=== PATIENT | male | born 1975 | race Caucasian/White ===

== ENCOUNTER 2023-07-09 22:36 | Inpatient (IN) | payer OTHER ==
[2023-07-09 23:27] LABS: #Basophils 0.1 thou/uL (0.0-0.2); #Eosinphils 0.5 thou/uL (0.0-0.7); #Monocytes 0.5 thou/uL (0.11-0.59); #Neutrophils 6.1 thou/uL (1.40-6.50); %Basophils 0.8 % (0.0-1.0); %Eosinophils 5.7 % (0.0-10.0); %Lymphocytes 21.7 % (21.0-51.0); %Monocytes 5.1 % (0.0-10.0); %Neutrophils 66.3 % (42.0-75.0); Mean Corpuscular HGB CONC 31.7 g/dL (32.0-36.0); Mean Corpuscular Hemoglobin 26.6 pg (27.0-31.0); Mean Corpuscular Volume 83.8 fl (78.0-98.0); Mean Platelet Volume 10.8 fL (7.4-10.4); Platelet Count 375 10x3/uL (130-400); RBC Distribution Width 12.9 % (11.5-14.5); Red Blood Cell (RBC) Count 4.89 mill/uL (4.70-6.10); White Blood Cell (WBC) Count 9.3 10x3/uL (4.8-10.8)
[2023-07-09 23:51] LABS: ALT (SGPT) 11 U/L (8-55); AST (SGOT) 12 U/L (5-34); Albumin 4.3 g/dL (3.5-5.0); Alkaline Phosphatase 83 U/L (40-110); Anion Gap 18 mmol/L (10-20); BUN (Urea Nitrogen) 14 mg/dL (8.9-20.6); Bilirubin, Total 0.2 mg/dL (0.2-1.2); Calc. Creatinine Clearance 0 mL/min (70-130); Calcium 9.5 mg/dL (7.8-10.44); Carbon Dioxide 21 mmol/L (22-29); Chloride 103 mmol/L (98-107); Estimated GFR 84; Globulin 3.2 g/dL (2.4-3.5); Glucose 122 mg/dL (70-105); Potassium 4.2 mmol/L (3.5-5.1); Protein, Total 7.5 g/dL (6.0-8.3); Sodium 138 mmol/L (136-145)
[2023-07-10] MEDS ORDERED: methylPREDNISolone Sod Succ/PF 125 MG/2 ML VIAL ONE (01:11)
[2023-07-10 02:34] LABS: Lactic Acid 1.6 mmol/L (0.5-2.2)
[2023-07-10 02:42] LABS: Troponin I 0.021 ng/mL (< 0.028)
[2023-07-10] MEDS ORDERED: LevoFLOXacin 750 mg/D5W 150 ml Premix Bag ONE (06:05)
[2023-07-10 06:20] VITALS: BMI 27.4
[2023-07-10] MEDS ORDERED: Ondansetron PF 4 MG/2 ML Vial IVP PRN (07:41)
[2023-07-10] MEDS ORDERED: Ondansetron ODT 4 MG TAB PO PRN (07:41)
[2023-07-10] MEDS: Sodium Chloride 0.9% 1,000 ML IV SCH ×2 (08:16→15:33)
[2023-07-10] MEDS ORDERED: Nicotine 14 MG PATCH TD SCH (09:45)
[2023-07-11 06:27] LABS: #Basophils 0.1 thou/uL (0.0-0.2); #Eosinphils 0.3 thou/uL (0.0-0.7); #Monocytes 0.9 thou/uL (0.11-0.59); #Neutrophils 10.4 thou/uL (1.40-6.50); %Basophils 0.3 % (0.0-1.0); %Eosinophils 2.3 % (0.0-10.0); %Lymphocytes 19.4 % (21.0-51.0); %Monocytes 5.9 % (0.0-10.0); %Neutrophils 71.7 % (42.0-75.0); Hematocrit 37.1 % (42.0-52.0); Hemoglobin 11.6 g/dL (14.0-18.0); Mean Corpuscular HGB CONC 31.3 g/dL (32.0-36.0); Mean Corpuscular Hemoglobin 26.2 pg (27.0-31.0); Mean Corpuscular Volume 83.7 fl (78.0-98.0); Mean Platelet Volume 11.1 fL (7.4-10.4); Platelet Count 389 10x3/uL (130-400); RBC Distribution Width 12.9 % (11.5-14.5); Red Blood Cell (RBC) Count 4.43 mill/uL (4.70-6.10); White Blood Cell (WBC) Count 14.5 10x3/uL (4.8-10.8)
[2023-07-11 06:55] LABS: Anion Gap 13 mmol/L (10-20); BUN (Urea Nitrogen) 13 mg/dL (8.9-20.6); Calc. Creatinine Clearance 139 mL/min (70-130); Calcium 8.9 mg/dL (7.8-10.44); Carbon Dioxide 24 mmol/L (22-29); Chloride 107 mmol/L (98-107); Estimated GFR 106; Glucose 101 mg/dL (70-105); Potassium 4.1 mmol/L (3.5-5.1); Sodium 140 mmol/L (136-145)
[2023-07-11] MEDS: Nicotine 14 MG PATCH TD SCH (08:03)
[2023-07-11] MEDS: LevoFLOXacin 750 mg/D5W 750 MG in Premix 1 BAG IVPB SCH (08:03)
[2023-07-11] MEDS: guaiFENesin ER 600 MG TAB PO SCH (19:59)
[2023-07-11] MEDS: Acetaminophen 325 MG TAB PO PRN (21:44)
[2023-07-11] MEDS ORDERED: traMADol HCl 50 MG TAB PO SCH (23:00)
[2023-07-11] MEDS ORDERED: Lidocaine 4% Patch TD SCH (23:00)
[2023-07-12 07:35] LABS: #Basophils 0.1 thou/uL (0.0-0.2); #Eosinphils 0.5 thou/uL (0.0-0.7); #Monocytes 0.8 thou/uL (0.11-0.59); #Neutrophils 6.6 thou/uL (1.40-6.50); %Basophils 0.6 % (0.0-1.0); %Lymphocytes 23.8 % (21.0-51.0); %Monocytes 7.5 % (0.0-10.0); %Neutrophils 62.4 % (42.0-75.0); Hemoglobin 11.7 g/dL (14.0-18.0); Mean Corpuscular HGB CONC 31.6 g/dL (32.0-36.0); Mean Corpuscular Hemoglobin 26.3 pg (27.0-31.0); Mean Corpuscular Volume 83.1 fl (78.0-98.0); Mean Platelet Volume 11.1 fL (7.4-10.4); Platelet Count 334 10x3/uL (130-400); RBC Distribution Width 13.1 % (11.5-14.5); Red Blood Cell (RBC) Count 4.45 mill/uL (4.70-6.10); White Blood Cell (WBC) Count 10.6 10x3/uL (4.8-10.8)
[2023-07-12 08:17] LABS: Anion Gap 14 mmol/L (10-20); BUN (Urea Nitrogen) 17 mg/dL (8.9-20.6); Calc. Creatinine Clearance 144 mL/min (70-130); Calcium 9.2 mg/dL (7.8-10.44); Carbon Dioxide 22 mmol/L (22-29); Chloride 106 mmol/L (98-107); Estimated GFR 107; Glucose 99 mg/dL (70-105); Potassium 4.2 mmol/L (3.5-5.1); Sodium 138 mmol/L (136-145)
[2023-07-12] MEDS: guaiFENesin ER 600 MG TAB PO SCH ×2 (08:17→19:51)
[2023-07-12] MEDS: LevoFLOXacin 750 mg/D5W 750 MG in Premix 1 BAG IVPB SCH (08:17)
[2023-07-12] MEDS: Nicotine 14 MG PATCH TD SCH (08:58)
[2023-07-12] MEDS: Transdermal Patch Removal TOP SCH (08:58)
[2023-07-12] MEDS ORDERED: Lidocaine 4% Patch TD SCH (09:00)
[2023-07-12] MEDS: traMADol HCl 50 MG TAB PO PRN (19:51)
[2023-07-12] MEDS: Lidocaine 4% Patch TD SCH (19:51)
[2023-07-13 04:35] LABS: #Basophils 0.1 thou/uL (0.0-0.2); #Eosinphils 0.5 thou/uL (0.0-0.7); #Monocytes 0.8 thou/uL (0.11-0.59); #Neutrophils 6.6 thou/uL (1.40-6.50); %Basophils 0.8 % (0.0-1.0); %Eosinophils 4.9 % (0.0-10.0); %Lymphocytes 22.9 % (21.0-51.0); %Monocytes 7.9 % (0.0-10.0); %Neutrophils 62.8 % (42.0-75.0); Hematocrit 38.7 % (42.0-52.0); Hemoglobin 12.5 g/dL (14.0-18.0); Mean Corpuscular HGB CONC 32.3 g/dL (32.0-36.0); Mean Corpuscular Hemoglobin 26.7 pg (27.0-31.0); Mean Corpuscular Volume 82.7 fl (78.0-98.0); Mean Platelet Volume 10.9 fL (7.4-10.4); Platelet Count 371 10x3/uL (130-400); RBC Distribution Width 13.1 % (11.5-14.5); Red Blood Cell (RBC) Count 4.68 mill/uL (4.70-6.10); White Blood Cell (WBC) Count 10.5 10x3/uL (4.8-10.8)
[2023-07-13 04:54] LABS: PTT 34.8 sec (22.9-36.1); Prothrombin Time 13.4 sec (12.0-14.7)
[2023-07-13] MEDS: Transdermal Patch Removal TOP SCH (07:54)
[2023-07-13] MEDS: guaiFENesin ER 600 MG TAB PO SCH ×2 (07:54→20:41)
[2023-07-13] MEDS: LevoFLOXacin 750 mg/D5W 750 MG in Premix 1 BAG IVPB SCH (07:54)
[2023-07-13] MEDS: Nicotine 14 MG PATCH TD SCH ×2 (07:54→12:54)
[2023-07-13] MEDS ORDERED: fentaNYL 50 mcg/mL 1 mL Vial ONE (10:37)
[2023-07-13] MEDS ORDERED: Lidocaine 1% PF 5 ML VIAL ONE (10:37)
[2023-07-13] MEDS ORDERED: Sodium Bicarbonate 2.5 MEQ/5 ML VIAL ONE (10:38)
[2023-07-13] MEDS: traMADol HCl 50 MG TAB PO PRN ×2 (12:53→20:45)
[2023-07-13] MEDS: Acetaminophen 325 MG TAB PO PRN (12:56)
[2023-07-13] MEDS: Lidocaine 4% Patch TD SCH (20:41)
[2023-07-14 05:38] LABS: #Basophils 0.1 thou/uL (0.0-0.2); #Eosinphils 0.4 thou/uL (0.0-0.7); #Monocytes 0.7 thou/uL (0.11-0.59); #Neutrophils 7.4 thou/uL (1.40-6.50); %Basophils 0.7 % (0.0-1.0); %Eosinophils 3.6 % (0.0-10.0); %Lymphocytes 17.9 % (21.0-51.0); %Monocytes 6.4 % (0.0-10.0); %Neutrophils 70.9 % (42.0-75.0); Hematocrit 39.6 % (42.0-52.0); Hemoglobin 12.6 g/dL (14.0-18.0); Mean Corpuscular HGB CONC 31.8 g/dL (32.0-36.0); Mean Corpuscular Hemoglobin 26.4 pg (27.0-31.0); Mean Platelet Volume 10.7 fL (7.4-10.4); Platelet Count 368 10x3/uL (130-400); RBC Distribution Width 13.1 % (11.5-14.5); Red Blood Cell (RBC) Count 4.77 mill/uL (4.70-6.10); White Blood Cell (WBC) Count 10.4 10x3/uL (4.8-10.8)
[2023-07-14] MEDS: guaiFENesin ER 600 MG TAB PO SCH ×2 (08:49→20:28)
[2023-07-14] MEDS: traMADol HCl 50 MG TAB PO PRN ×3 (08:49→23:08)
[2023-07-14] MEDS: Nicotine 14 MG PATCH TD SCH (08:52)
[2023-07-14] MEDS: LevoFLOXacin 750 mg/D5W 750 MG in Premix 1 BAG IVPB SCH (08:54)
[2023-07-14] MEDS ORDERED: LevoFLOXacin 750 MG TAB PO SCH ×2 (09:45→10:00)
[2023-07-14] MEDS: Transdermal Patch Removal TOP SCH (10:18)
[2023-07-14] MEDS: Lidocaine 4% Patch TD SCH (20:28)
[2023-07-14] MEDS: Acetaminophen 325 MG TAB PO PRN (20:28)
[2023-07-15] MEDS: LevoFLOXacin 750 MG TAB PO SCH (05:27)
[2023-07-15] MEDS: traMADol HCl 50 MG TAB PO PRN (05:27)
[2023-07-15] MEDS: Acetaminophen 325 MG TAB PO PRN (05:28)
[2023-07-15 05:49] LABS: #Basophils 0.1 thou/uL (0.0-0.2); #Eosinphils 0.4 thou/uL (0.0-0.7); #Monocytes 0.7 thou/uL (0.11-0.59); #Neutrophils 5.7 thou/uL (1.40-6.50); %Basophils 0.8 % (0.0-1.0); %Eosinophils 4.2 % (0.0-10.0); %Monocytes 8.1 % (0.0-10.0); %Neutrophils 65.3 % (42.0-75.0); Hematocrit 41.1 % (42.0-52.0); Mean Corpuscular HGB CONC 31.6 g/dL (32.0-36.0); Mean Corpuscular Hemoglobin 25.9 pg (27.0-31.0); Mean Platelet Volume 10.5 fL (7.4-10.4); Platelet Count 384 10x3/uL (130-400); RBC Distribution Width 13.1 % (11.5-14.5); Red Blood Cell (RBC) Count 5.01 mill/uL (4.70-6.10); White Blood Cell (WBC) Count 8.7 10x3/uL (4.8-10.8)
[2023-07-15] MEDS: guaiFENesin ER 600 MG TAB PO SCH ×2 (09:36→19:55)
[2023-07-15] MEDS: Transdermal Patch Removal TOP SCH (09:37)
[2023-07-15] MEDS: HYDROcodone/Acetaminophen 7.5/325 mg Tablet PO PRN ×3 (09:42→20:00)
[2023-07-15] MEDS: Nicotine 14 MG PATCH TD SCH (09:44)
[2023-07-15] MEDS ORDERED: Senokot 8.6 MG TAB PO PRN (18:41)
[2023-07-15] MEDS: Varenicline Tartrate 0.5 MG TAB PO SCH (19:55)
[2023-07-15] MEDS: Lidocaine 4% Patch TD SCH (19:55)
[2023-07-16] MEDS: HYDROcodone/Acetaminophen 7.5/325 mg Tablet PO PRN ×4 (00:20→14:12)
[2023-07-16] MEDS: LevoFLOXacin 750 MG TAB PO SCH (05:08)
[2023-07-16 07:37] VITALS: TEMP 97.4
[2023-07-16] MEDS: Transdermal Patch Removal TOP SCH (08:21)
[2023-07-16] MEDS: guaiFENesin ER 600 MG TAB PO SCH (08:21)
[2023-07-16] MEDS: Varenicline Tartrate 0.5 MG TAB PO SCH (08:21)
[2023-07-16 12:21] VITALS: BP 124/86
== END 2023-07-16 18:11 | disposition home or self-care (01) | DRG 180 ==
LOC: ERS 22:36 → T4-B 07-10 05:17 → OBSVTOIN 07-10 15:45
PROVIDERS: ADMIT Internal Medicine; ATTEND Family Medicine
PROC: 0B9K3ZX Drainage of Right Lung, Percutaneous Approach, Diagnostic (ICD-10-PCS; principal; 2023-07-13)
DX: C34.11 Malignant neoplasm of upper lobe, right bronchus or lung (principal); J18.9 Pneumonia, unspecified organism; J90 Pleural effusion, not elsewhere classified; R91.1 Solitary pulmonary nodule; I10 Essential (primary) hypertension; F19.10 Other psychoactive substance abuse, uncomplicated; F17.210 Nicotine dependence, cigarettes, uncomplicated; D72.829 Elevated white blood cell count, unspecified; F19.90 Other psychoactive substance use, unspecified, uncomplicated; Z79.899 Other long term (current) drug therapy; Z71.6 Tobacco abuse counseling
CPT/HCPCS: 32408; 36415; 70470; 70553; 71045; 71275; 74177; 77012; 78306; 80048; 80053; 83605; 84484; 85025; 85610; 85730; 86850; 86900; 86901; 87040; 88305; 88333; 88334; 88341; 88342; 93005; 94760; 96361; 96374; A9503; J1956; J2930; J3010; J7050

== ENCOUNTER 2023-07-31 09:30 | Outpatient (CLI) | payer OTHER | END 2023-07-31 09:31 | disposition home or self-care (01) | LOC: PET 09:30 | PROVIDERS: ATTEND Internal Medicine | DX: C34.11 Malignant neoplasm of upper lobe, right bronchus or lung (principal); R59.0 Localized enlarged lymph nodes; J90 Pleural effusion, not elsewhere classified | CPT/HCPCS: 78815; A9552 ==

== ENCOUNTER 2023-09-27 14:38 | Inpatient (IN) | payer OTHER ==
[~2023-09-27 14:38] MED LIST: Iopamidol 370 76% 100 ML VIAL ONE
[2023-09-27 16:32] LABS: Bacteria/HPF None Seen HPF (None Seen); Bilirubin Negative (Negative); Blood, Urine Negative (Negative); CAUTI Indications for Culture Dysuria,urgency,freq; Clarity Clear (Clear); Glucose, Urine (Dipstick) Normal (Negative); Ketone, Urine Negative (Negative); Leukocyte Negative Leu/uL (Negative); Nitrite Negative (Negative); Protein, Urine (Dipstick) 10 mg/dL (Neg-Trace); RBC/HPF 0-3 HPF (0-3); Specific Gravity, Urine 1.026 (1.002-1.036); Squamous Epithelial 0-3 HPF (0-3); Urobilinogen Normal mg/dL (Less than 2); pH, Urine 5.5 (5.0-9.0)
[2023-09-27 16:51] LABS: Urine Culture Reflex No No
[2023-09-27 17:03] LABS: #Eosinphils 0.1 thou/uL (0.0-0.7); #Monocytes 0.4 thou/uL (0.11-0.59); #Neutrophils 5.1 thou/uL (1.40-6.50); %Basophils 0.2 % (0.0-1.0); %Eosinophils 1.2 % (0.0-10.0); %Lymphocytes 9.4 % (21.0-51.0); %Monocytes 5.8 % (0.0-10.0); %Neutrophils 83.2 % (42.0-75.0); Hematocrit 38.5 % (42.0-52.0); Hemoglobin 12.7 g/dL (14.0-18.0); Mean Corpuscular Hemoglobin 25.6 pg (27.0-31.0); Mean Corpuscular Volume 77.5 fl (78.0-98.0); Mean Platelet Volume 10.6 fL (7.4-10.4); Platelet Count 197 10x3/uL (130-400); RBC Distribution Width 19.4 % (11.5-14.5); Red Blood Cell (RBC) Count 4.97 mill/uL (4.70-6.10); White Blood Cell (WBC) Count 6.1 10x3/uL (4.8-10.8)
[2023-09-27 17:16] LABS: ALT (SGPT) 31 U/L (8-55); AST (SGOT) 15 U/L (5-34); Albumin 4.2 g/dL (3.5-5.0); Alkaline Phosphatase 86 U/L (40-110); Anion Gap 14 mmol/L (10-20); BUN (Urea Nitrogen) 11 mg/dL (8.9-20.6); Bilirubin, Total 0.8 mg/dL (0.2-1.2); Calc. Creatinine Clearance 0 mL/min (70-130); Calcium 9.4 mg/dL (7.8-10.44); Carbon Dioxide 23 mmol/L (22-29); Chloride 103 mmol/L (98-107); Estimated GFR 114; Globulin 2.8 g/dL (2.4-3.5); Glucose 103 mg/dL (70-105); Sodium 136 mmol/L (136-145)
[2023-09-27] MEDS ORDERED: LORazepam 2 MG/ML SYR.(CARPUJECT) ONE (17:38)
[2023-09-27 20:08] LABS: Campy jejuni + coli by PCR Negative (Negative); STEC Shiga Toxin 1+2 Negative (Negative); Salmonella spp. by PCR Negative (Negative); Shigella spp + EIEC by PCR Negative (Negative)
[2023-09-27] MEDS ORDERED: Piperacillin/Tazobactam 3.375 GM VIAL ONE (21:06)
[2023-09-27] MEDS ORDERED: Sodium Chloride 0.9% 100 ML ONE (21:07)
[2023-09-27] MEDS ORDERED: Acetaminophen 325 MG TAB PO PRN (21:41)
[2023-09-27] MEDS ORDERED: Ondansetron PF 4 MG/2 ML Vial IVP PRN (21:41)
[2023-09-27] MEDS ORDERED: Ondansetron ODT 4 MG TAB PO PRN (21:41)
[2023-09-27] MEDS ORDERED: Prochlorperazine Edisylate 10 MG in Sodium Chloride 0.9% 50 ML IVPB PRN (23:45)
[2023-09-27] MEDS ORDERED: Prochlorperazine Maleate 5 MG TAB PO SCH (23:59)
[2023-09-28] MEDS: Prochlorperazine Maleate 5 MG TAB PO PRN ×2 (00:13→15:50)
[2023-09-28 02:05] VITALS: BMI 25.8
[2023-09-28] MEDS: Sodium Chloride 0.9% 1,000 ML IV SCH ×3 (02:40→18:54)
[2023-09-28] MEDS: Piperacillin/Tazobactam 3.375 GM in Sodium Chloride 0.9% 100 ML IVPB SCH ×3 (02:40→18:14)
[2023-09-28 06:34] LABS: #Eosinphils 0.2 thou/uL (0.0-0.7); #Monocytes 0.2 thou/uL (0.11-0.59); #Neutrophils 2.3 thou/uL (1.40-6.50); %Basophils 0.3 % (0.0-1.0); %Eosinophils 4.2 % (0.0-10.0); %Lymphocytes 25.9 % (21.0-51.0); %Monocytes 4.2 % (0.0-10.0); %Neutrophils 65.1 % (42.0-75.0); Hematocrit 36.8 % (42.0-52.0); Hemoglobin 11.9 g/dL (14.0-18.0); Mean Corpuscular HGB CONC 32.3 g/dL (32.0-36.0); Mean Corpuscular Hemoglobin 25.6 pg (27.0-31.0); Mean Corpuscular Volume 79.3 fl (78.0-98.0); Mean Platelet Volume 11.2 fL (7.4-10.4); Platelet Count 207 10x3/uL (130-400); RBC Distribution Width 19.8 % (11.5-14.5); Red Blood Cell (RBC) Count 4.64 mill/uL (4.70-6.10); White Blood Cell (WBC) Count 3.6 10x3/uL (4.8-10.8)
[2023-09-28 06:55] LABS: Anion Gap 12 mmol/L (10-20); BUN (Urea Nitrogen) 9 mg/dL (8.9-20.6); Calc. Creatinine Clearance 151 mL/min (70-130); Calcium 8.9 mg/dL (7.8-10.44); Carbon Dioxide 26 mmol/L (22-29); Chloride 105 mmol/L (98-107); Estimated GFR 112; Glucose 95 mg/dL (70-105); Potassium 3.7 mmol/L (3.5-5.1); Sodium 139 mmol/L (136-145)
[2023-09-28] MEDS ORDERED: FLU VACC QS2023-24(6MOS UP)/PF 60 MCG/0.5 ML SYRINGE IM ONE (09:00)
[2023-09-28] MEDS: HYDROcodone/Acetaminophen 10/325 mg Tablet PO PRN (15:54)
[2023-09-29] MEDS: HYDROcodone/Acetaminophen 10/325 mg Tablet PO PRN ×3 (03:15→21:53)
[2023-09-29] MEDS: Piperacillin/Tazobactam 3.375 GM in Sodium Chloride 0.9% 100 ML IVPB SCH ×4 (03:16→20:46)
[2023-09-29] MEDS: Sodium Chloride 0.9% 1,000 ML IV SCH (03:18)
[2023-09-29 05:21] LABS: #Eosinphils 0.1 thou/uL (0.0-0.7); #Monocytes 0.1 thou/uL (0.11-0.59); #Neutrophils 3.3 thou/uL (1.40-6.50); %Basophils 0.5 % (0.0-1.0); %Eosinophils 3.1 % (0.0-10.0); %Lymphocytes 16.2 % (21.0-51.0); %Monocytes 2.4 % (0.0-10.0); %Neutrophils 77.6 % (42.0-75.0); Hematocrit 36.8 % (42.0-52.0); Hemoglobin 11.7 g/dL (14.0-18.0); Mean Corpuscular HGB CONC 31.8 g/dL (32.0-36.0); Mean Corpuscular Volume 78.6 fl (78.0-98.0); Mean Platelet Volume 11.2 fL (7.4-10.4); Platelet Count 216 10x3/uL (130-400); RBC Distribution Width 19.5 % (11.5-14.5); Red Blood Cell (RBC) Count 4.68 mill/uL (4.70-6.10); White Blood Cell (WBC) Count 4.2 10x3/uL (4.8-10.8)
[2023-09-29 05:46] LABS: Anion Gap 13 mmol/L (10-20); BUN (Urea Nitrogen) 8 mg/dL (8.9-20.6); Calc. Creatinine Clearance 147 mL/min (70-130); Carbon Dioxide 25 mmol/L (22-29); Chloride 103 mmol/L (98-107); Estimated GFR 111; Glucose 95 mg/dL (70-105); Potassium 3.7 mmol/L (3.5-5.1); Sodium 137 mmol/L (136-145)
[2023-09-29] MEDS ORDERED: Loperamide HCl 2 MG CAP PO SCH (09:00)
[2023-09-29] MEDS ORDERED: Loperamide HCl 2 MG CAP PO PRN (10:53)
[2023-09-29] MEDS: Prochlorperazine Maleate 5 MG TAB PO PRN (21:56)
[2023-09-30] MEDS: Piperacillin/Tazobactam 3.375 GM in Sodium Chloride 0.9% 100 ML IVPB SCH ×2 (02:59→11:13)
[2023-09-30 03:07] VITALS: TEMP 97.9
[2023-09-30 03:12] LABS: #Eosinphils 0.2 thou/uL (0.0-0.7); #Monocytes 0.1 thou/uL (0.11-0.59); #Neutrophils 1.6 thou/uL (1.40-6.50); %Basophils 1.1 % (0.0-1.0); %Lymphocytes 34.4 % (21.0-51.0); %Monocytes 3.2 % (0.0-10.0); %Neutrophils 54.9 % (42.0-75.0); Hematocrit 32.2 % (42.0-52.0); Hemoglobin 10.4 g/dL (14.0-18.0); Mean Corpuscular HGB CONC 32.3 g/dL (32.0-36.0); Mean Corpuscular Hemoglobin 25.6 pg (27.0-31.0); Mean Corpuscular Volume 79.1 fl (78.0-98.0); Mean Platelet Volume 10.8 fL (7.4-10.4); Platelet Count 215 10x3/uL (130-400); RBC Distribution Width 19.2 % (11.5-14.5); Red Blood Cell (RBC) Count 4.07 mill/uL (4.70-6.10); White Blood Cell (WBC) Count 2.8 10x3/uL (4.8-10.8)
[2023-09-30 03:32] LABS: Anion Gap 10 mmol/L (10-20); BUN (Urea Nitrogen) 16 mg/dL (8.9-20.6); Calc. Creatinine Clearance 143 mL/min (70-130); Calcium 8.7 mg/dL (7.8-10.44); Carbon Dioxide 25 mmol/L (22-29); Chloride 106 mmol/L (98-107); Estimated GFR 109; Glucose 88 mg/dL (70-105); Magnesium 1.9 mg/dL (1.6-2.6); Potassium 3.4 mmol/L (3.5-5.1); Sodium 138 mmol/L (136-145)
[2023-09-30 03:38] LABS: Troponin I 0.012 ng/mL (< 0.028)
[2023-09-30] MEDS: HYDROcodone/Acetaminophen 10/325 mg Tablet PO PRN (08:26)
[2023-09-30] MEDS ORDERED: fentaNYL 100 mcg/hour Patch TD PRN (09:00)
[2023-09-30] MEDS ORDERED: fentaNYL 75 mcg/hour Patch TD SCH (09:00)
[2023-09-30 09:47] VITALS: BP 116/80
== END 2023-09-30 15:45 | disposition home or self-care (01) | DRG 392 ==
LOC: ERS 14:38 → MSONC 21:17 → OBSVTOIN 09-29 11:10
PROVIDERS: ADMIT Student in an Organized Health Care Education/Training Program; ATTEND Emergency Medicine
DX: A09 Infectious gastroenteritis and colitis, unspecified (principal); C34.91 Malignant neoplasm of unspecified part of right bronchus or lung; C79.51 Secondary malignant neoplasm of bone; I10 Essential (primary) hypertension; F12.129 Cannabis abuse with intoxication, unspecified; N20.0 Calculus of kidney; K21.9 Gastro-esophageal reflux disease without esophagitis; E86.0 Dehydration; J45.909 Unspecified asthma, uncomplicated; D64.9 Anemia, unspecified; I28.8 Other diseases of pulmonary vessels; J98.4 Other disorders of lung; Z79.51 Long term (current) use of inhaled steroids; Z98.890 Other specified postprocedural states
CPT/HCPCS: 36415; 74177; 80048; 80053; 81001; 82274; 83605; 83735; 84484; 85025; 87040; 87324; 87449; 87505; 93005; 93010; 96361; 96365; 96366; 96367; 96375; 96376; G0378; J1642; J2060; J2543; J3490; J7050; Q0164; Q9967

== ENCOUNTER 2023-10-21 08:45 | Outpatient (CLI) | payer OTHER | END 2023-10-21 08:46 | LOC: PET 08:45 | PROVIDERS: ATTEND Internal Medicine | DX: C34.11 Malignant neoplasm of upper lobe, right bronchus or lung (principal) | CPT/HCPCS: 78815; A9552 ==

== ENCOUNTER 2024-01-17 22:51 | Inpatient (IN) | payer OTHER ==
[~2024-01-17 22:51] MED LIST changes: -Iopamidol 370 76% 100 ML VIAL ONE; +Iopamidol-370 76% 500 ML MDV (1 ML CHARGE) ONE
[2024-01-17] MEDS ORDERED: HYDROmorphone 0.5 MG/0.5 ML SYRINGE ONE ×2 (23:37→23:39)
[2024-01-18] MEDS ORDERED: Ondansetron PF 4 MG/2 ML Vial IVP PRN (01:51)
[2024-01-18] MEDS ORDERED: Acetaminophen 325 MG TAB PO PRN (01:51)
[2024-01-18] MEDS ORDERED: LORazepam 2 MG/ML SYR.(CARPUJECT) ONE (04:51)
[2024-01-18 05:53] LABS: #Basophils 0.04 10x3/uL (0.0-0.2); %Basophils 0.5 % (0.0-1.0); %Eosinophils 1.8 % (0.0-10.0); %Lymphocytes 5.8 % (21.0-51.0); %Neutrophils 80.5 % (42.0-75.0); Hematocrit 31.8 % (42.0-52.0); Hemoglobin 10.1 g/dL (14.0-18.0); Mean Corpuscular HGB CONC 31.8 g/dL (32.0-36.0); Mean Corpuscular Hemoglobin 27.4 pg (27.0-31.0); Mean Corpuscular Volume 86.4 fL (78.0-98.0); Mean Platelet Volume 10.4 fL (7.4-10.4); Platelet Count 343 10x3/uL (130-400); RBC Distribution Width 13.9 % (11.5-14.5); Red Blood Cell (RBC) Count 3.68 mill/uL (4.70-6.10)
[2024-01-18 05:56] LABS: Globulin 3.8 g/dL (2.4-3.5)
[2024-01-18 06:01] LABS: ALT (SGPT) 17 U/L (8-55); AST (SGOT) 10 U/L (5-34); Alkaline Phosphatase 82 U/L (40-110); Anion Gap 14 mmol/L (10-20); BUN (Urea Nitrogen) 12 mg/dL (8.9-20.6); Bilirubin, Total 0.3 mg/dL (0.2-1.2); Calc. Creatinine Clearance 0 mL/min (70-130); Calcium 9.7 mg/dL (7.8-10.44); Carbon Dioxide 27 mmol/L (22-29); Chloride 102 mmol/L (98-107); Estimated GFR 118; Glucose 110 mg/dL (70-105); Potassium 4.3 mmol/L (3.5-5.1); Protein, Total 6.8 g/dL (6.0-8.3); Sodium 139 mmol/L (136-145)
[2024-01-18 06:05] LABS: Troponin I Less than 0.010 ng/mL (< 0.028)
[2024-01-18 08:10] VITALS: BMI 25.6
[2024-01-18] MEDS: Sterile Water 10 ML VIAL FS SCH (08:35)
[2024-01-18] MEDS: Activase 2 MG VIAL CATH SCH (08:35)
[2024-01-18] MEDS: Morphine ER 15 MG TAB PO SCH (11:09)
[2024-01-18] MEDS: Morphine 4 MG/ML VIAL SLOW IVP PRN (13:00)
[2024-01-18] MEDS: HYDROcodone/Acetaminophen 10/325 mg Tablet PO PRN (15:39)
[2024-01-18] MEDS: Lorazepam 2 MG/ML VIAL SLOW IVP PRN (15:42)
[2024-01-19 09:02] LABS: Anion Gap 15 mmol/L (10-20); BUN (Urea Nitrogen) 12 mg/dL (8.9-20.6); Calc. Creatinine Clearance 172 mL/min (70-130); Calcium 10.1 mg/dL (7.8-10.44); Carbon Dioxide 27 mmol/L (22-29); Chloride 97 mmol/L (98-107); Estimated GFR 115; Glucose 109 mg/dL (70-105); Potassium 4.4 mmol/L (3.5-5.1); Sodium 135 mmol/L (136-145)
[2024-01-19 09:41] LABS: #Basophils 0.05 10x3/uL (0.0-0.2); %Basophils 0.6 % (0.0-1.0); %Eosinophils 1.4 % (0.0-10.0); %Lymphocytes 6.3 % (21.0-51.0); %Monocytes 10.6 % (0.0-10.0); %Neutrophils 79.8 % (42.0-75.0); Hematocrit 35.6 % (42.0-52.0); Mean Corpuscular HGB CONC 30.9 g/dL (32.0-36.0); Mean Corpuscular Hemoglobin 26.3 pg (27.0-31.0); Mean Platelet Volume 10.5 fL (7.4-10.4); Platelet Count 355 10x3/uL (130-400); RBC Distribution Width 14.1 % (11.5-14.5); Red Blood Cell (RBC) Count 4.19 mill/uL (4.70-6.10)
[2024-01-19] MEDS ORDERED: EPINEPHrine 1 MG/ML VIAL ONE (10:56)
[2024-01-19] MEDS ORDERED: Bupivacaine PF 0.5% 30 ML VIAL ONE (10:56)
[2024-01-19 12:07] VITALS: BMI 25.6
[2024-01-19] MEDS ORDERED: Midazolam HCl 2 mg/2 ml Vial ONE (12:11)
[2024-01-19] MEDS ORDERED: PROPOFOL 20 ML ONE (12:12)
[2024-01-19] MEDS ORDERED: fentaNYL PF 100 MCG/2 ML SYRINGE ONE ×2 (12:20→13:17)
[2024-01-19] MEDS ORDERED: CEFAZOLIN 2 GM VIAL ONE (12:35)
[2024-01-19] MEDS ORDERED: Rocuronium Bromide 10 MG/ML (10ML VIAL) ONE (12:55)
[2024-01-19] MEDS ORDERED: Esmolol 100 MG/10 ML VIAL ONE (12:55)
[2024-01-19] MEDS ORDERED: Glycopyrrolate 0.2 MG/ML 5 ML SYRINGE ONE (12:55)
[2024-01-19] MEDS ORDERED: Dexamethasone 4 mg/ml Vial ONE ×2 (12:55)
[2024-01-19] MEDS ORDERED: Ondansetron PF 4 MG/2 ML Vial ONE (12:55)
[2024-01-19] MEDS ORDERED: SUGAMMADEX SODIUM 200 MG/2 ML VIAL ONE (13:13)
[2024-01-19] MEDS ORDERED: Ketamine In 0.9 % NaCl 50 MG/5 ML SYRINGE ONE (13:24)
[2024-01-19] MEDS ORDERED: fentaNYL 50 mcg/mL 1 mL Vial ONE (14:42)
[2024-01-19 15:25] LABS: Fluid, Protein 4.3 g/dL (Not Available)
[2024-01-19] MEDS: Acetaminophen 325 MG TAB PO SCH (15:31)
[2024-01-19] MEDS: Ketorolac Tromethamine 30 MG (1 mL) VIAL IVP SCH (17:11)
[2024-01-19 18:25] LABS: #Basophils Less than 0.03 10x3/uL (0.0-0.2); #Eosinphils Less than 0.03 10x3/uL (0.0-0.7); %Basophils 0.1 % (0.0-1.0); %Lymphocytes 1.8 % (21.0-51.0); %Monocytes 4.2 % (0.0-10.0); %Neutrophils 93.1 % (42.0-75.0); Hematocrit 36.7 % (42.0-52.0); Hemoglobin 11.8 g/dL (14.0-18.0); Mean Corpuscular HGB CONC 32.2 g/dL (32.0-36.0); Mean Corpuscular Hemoglobin 27.1 pg (27.0-31.0); Mean Corpuscular Volume 84.4 fL (78.0-98.0); Mean Platelet Volume 10.3 fL (7.4-10.4); Platelet Count 355 10x3/uL (130-400); RBC Distribution Width 13.7 % (11.5-14.5); Red Blood Cell (RBC) Count 4.35 mill/uL (4.70-6.10)
[2024-01-19 19:06] LABS: Anion Gap 17 mmol/L (10-20); BUN (Urea Nitrogen) 14 mg/dL (8.9-20.6); Calc. Creatinine Clearance 177 mL/min (70-130); Calcium 9.9 mg/dL (7.8-10.44); Carbon Dioxide 23 mmol/L (22-29); Chloride 99 mmol/L (98-107); Estimated GFR 116; Glucose 142 mg/dL (70-105); Potassium 4.6 mmol/L (3.5-5.1); Sodium 134 mmol/L (136-145)
[2024-01-20 05:56] LABS: #Basophils Less than 0.03 10x3/uL (0.0-0.2); #Eosinphils Less than 0.03 10x3/uL (0.0-0.7); %Basophils 0.1 % (0.0-1.0); %Eosinophils 0.1 % (0.0-10.0); %Monocytes 8.8 % (0.0-10.0); %Neutrophils 86.3 % (42.0-75.0); Hematocrit 34.2 % (42.0-52.0); Hemoglobin 10.9 g/dL (14.0-18.0); Mean Corpuscular HGB CONC 31.9 g/dL (32.0-36.0); Mean Corpuscular Hemoglobin 26.9 pg (27.0-31.0); Mean Corpuscular Volume 84.4 fL (78.0-98.0); Mean Platelet Volume 10.2 fL (7.4-10.4); Platelet Count 365 10x3/uL (130-400); RBC Distribution Width 13.5 % (11.5-14.5); Red Blood Cell (RBC) Count 4.05 mill/uL (4.70-6.10)
[2024-01-20 06:20] LABS: Anion Gap 14 mmol/L (10-20); BUN (Urea Nitrogen) 18 mg/dL (8.9-20.6); Calc. Creatinine Clearance 162 mL/min (70-130); Calcium 9.9 mg/dL (7.8-10.44); Carbon Dioxide 26 mmol/L (22-29); Chloride 99 mmol/L (98-107); Estimated GFR 113; Glucose 175 mg/dL (70-105); Potassium 4.4 mmol/L (3.5-5.1); Sodium 135 mmol/L (136-145)
[2024-01-20] MEDS: fentaNYL 100 mcg/hour Patch TD SCH (09:57)
[2024-01-20] MEDS: Senokot S 8.6-50 MG TAB PO SCH (09:58)
[2024-01-20] MEDS: HYDROcodone/Acetaminophen 10/325 mg Tablet PO PRN (20:11)
[2024-01-21 08:48] VITALS: BP 138/80; TEMP 98.6
[2024-01-21] MEDS: fentaNYL 25 mcg Patch TD SCH (08:48)
== END 2024-01-21 11:31 | disposition home or self-care (01) | DRG 167 ==
LOC: ERS 22:51 → 2SW 01-18 07:32 → OBSVTOIN 01-19 15:43
PROVIDERS: ADMIT Internal Medicine; ATTEND Internal Medicine
PROC: 0BBC8ZX Excision of Right Upper Lung Lobe, Via Natural or Artificial Opening Endoscopic, Diagnostic (ICD-10-PCS; principal; 2024-01-19)
PROC: 0B948ZX Drainage of Right Upper Lobe Bronchus, Via Natural or Artificial Opening Endoscopic, Diagnostic (ICD-10-PCS; 2024-01-19)
PROC: 3E033XZ Introduction of Vasopressor into Peripheral Vein, Percutaneous Approach (ICD-10-PCS; 2024-01-19)
DX: C34.90 Malignant neoplasm of unspecified part of unspecified bronchus or lung (principal); I87.1 Compression of vein; J91.0 Malignant pleural effusion; Z51.5 Encounter for palliative care; Z66 Do not resuscitate; I10 Essential (primary) hypertension; F17.210 Nicotine dependence, cigarettes, uncomplicated; F17.200 Nicotine dependence, unspecified, uncomplicated; G89.3 Neoplasm related pain (acute) (chronic); Z98.890 Other specified postprocedural states; Z79.899 Other long term (current) drug therapy
CPT/HCPCS: 36415; 71045; 71275; 80048; 80053; 83615; 83880; 83986; 84157; 84484; 85025; 86850; 86900; 86901; 88112; 88305; 88341; 88342; 93005; 96374; 96375; J0171; J0665; J1100; J1170; J1642; J1885; J2060; J2250; J2270; J2405; J2704; J2997; J3010; J3490; Q9967

== ENCOUNTER 2024-02-04 15:29 | Outpatient (CLI) | payer OTHER | END 2024-02-04 15:30 | disposition home or self-care (01) | LOC: RAD 15:29 | PROVIDERS: ATTEND Student in an Organized Health Care Education/Training Program | DX: C34.11 Malignant neoplasm of upper lobe, right bronchus or lung (principal); R91.8 Other nonspecific abnormal finding of lung field; J90 Pleural effusion, not elsewhere classified; Z97.8 Presence of other specified devices | CPT/HCPCS: 71046 ==